=== PATIENT | male | born 1955 | race Caucasian/White ===

== ENCOUNTER 2016-09-21 20:29 | Emergency (ER) | payer OTHER ==
[~2016-09-21] VITALS: Ht 177.8 cm; Wt 100.0 kg
[~2016-09-21 20:29] MED LIST: NO HOME MEDICATIONS
[2016-09-21 20:34] VITALS: BP 202/87; PULSE 73; RESP 16; O2SAT 95
[2016-09-21 21:02] LABS: BASOPHILS % (AUTO) 0.3 % (0-3); EOSINOPHILS % (AUTO) 2.1 % (0-5); NEUTROPHILS % (AUTO) 58.3 % (40-74); Platelet Count 280 bil/L (150-400)
[2016-09-21 21:18] LABS: TROPONIN T 0.01 ug/L (0.0-0.011)
--- NOTE | 2016-09-21 21:24 | DRSVH ---
PROCEDURE: X-RAY CHEST ONE VIEW, PORTABLE ([id number]) INDICATIONS: CHEST PAIN TECHNIQUE: One view of the chest was acquired. COMPARISON: None. FINDINGS: Surgical changes and devices: None. Lungs and pleura: No pleural effusions or pneumothorax. Lungs are clear. Mediastinum: Mediastinal contours appear normal. Heart size is normal. Bones and chest wall: No suspicious bony lesions. Overlying soft tissues appear unremarkable. IMPRESSION: No acute cardiopulmonary disease process. Dictated by: Edita Chaudhari MD, PhD on 09/21/2016 at 21:22 Approved by: Edita Chaudhari MD, PhD on 09/21/2016 at 21:22
[2016-09-21 21:29] LABS: Magnesium 2.1 mg/dL (1.6-2.6)
[2016-09-22 00:03] VITALS: BP 150/67; PULSE 65; RESP 20; O2SAT 97
--- NOTE | 2016-09-22 01:23 | ED.REPORT ---
HPI-Chest Pain 40 and Over Date of Service Sep 22, 2016 ED Provider: oJrje Paris DO Extremities 1-year-old male with past medical history of bilateral ear congestion has been seen by outpatient ENT in the recent past with no diagnosis given, and Achilles tendon repair 6 months prior. Presented to the ED secondary to chest pressure 30 minutes. Patient states he had been experiencing bilateral ear congestion when he tried to clear his ear is with a Valsalva maneuver he developed a chest pressure accompanied with lightheadedness and transient diaphoresis. These symptoms resolved within 10- 15 minutes of onset. At time of interview patient asymptomatic. Nursing Notes Stated Complaint: CHEST PRESSURE/DIZZY/EAR PAIN Chief Complaint: Chest Pain-Non Cardiac Nature Nursing Notes Reviewed: Yes Allergies: Coded Allergies: Sulfa (Sulfonamide Antibiotics) (Verified Allergy, Unknown, rash, 02/07/16) Miscellaneous Medications ([No Home Medications]) General Time Seen by MD: 21:02 Chief Complaint Chest pressure Hx Obtained From: Patient Arrived By: Walk-in Sudden in Onset?: Yes Onset Occurred: Just prior to arrival Past Medical History Smoking History Never Smoker Review of Systems Constitutional: Denies: Chills, Fever Respiratory: Denies: Dyspnea on exertion, Shortness of breath, Wheezing Cardiovascular: Denies: Chest pain, Dyspnea on exertion, Edema, Palpitations GI: Denies: Abdominal pain, Bloody/tarry stool, Constipation, Diarrhea, Nausea , Vomiting Musculoskeletal: Denies: Back pain, Neck pain Neurologic: Denies: Change LOC, Confusion, Dizziness, Focal weakness, Headache , Lightheaded, Numbness, Slurred speech, Vision change Psychiatric: Denies: Change mental status, Confusion Physical Exam General: No acute distress, well-developed, well-nourished, appropriately interactive HEENT: Normocephalic, atraumatic. External ears without defect. Pupils equal, round, and reactive to light and accommodation. Anicteric sclerae, moist conjunctivae, and no lid lag. Neck: Supple with full range of motion. No jugular venous distension. No bruits. No lymphadenopathy or thyromegaly. Cardiovascular: Regular rate and rhythm with no murmurs, rubs, or gallops appreciated Pulmonary: Clear to auscultation bilaterally with no crackles, wheezes, or rhonchi. Normal respiratory effort with no use of accessory muscles. Abdomen: Bowel tones present. Soft, nontender, nondistended. No hepatosplenomegaly or masses appreciated. Extremities: No clubbing, cyanosis, edema, or lymphadenopathy appreciated. Digital scar right Achilles tendon. Right ankle slightly swollen Skin: Normal temperature, turgor, and texture; no rash, ulcers, or subcutaneous nodules appreciated. Neurological: Cranial nerves grossly intact. Normal muscle strength, tone, and bulk. Reflexes, coordination, and sensory function within normal limits. No known gait impairment. Psychiatric: Normal mood and affect. Alert and oriented to person, place, and time. Initial Vital Signs Vital Signs (First) Date Time Temp Pulse Resp B/P Pulse Ox O2 Delivery O2 Flow Rate FiO2 09/21/16 20:34 36.5 73 16 202/87 95 Room Air Initial VS: Reviewed Interpretation & Diagnostics X-RAY CHEST ONE VIEW, PORTABLE IMPRESSION: No acute cardiopulmonary disease process. Dictated by: Edita Chaudhari MD, PhD on 09/21/2016 at 21:22 Lab Results Interpretation Result Diagram: 09/21/16204409/21/162044 Test 09/21/16 20:45 09/21/16 22:06 White Blood Count 9.4th/mm3 (3.8-10.1) Red Blood Count 4.90mil/mm3 (4.40-5.80) Hemoglobin 15.2g/dL (13.8-17.2) Hematocrit 44.1% (41.0-50.0) Mean Corpuscular Volume 90.0fL (81-100) Mean Corpuscular Hemoglobin 31.0pg (27.0-35.0) Mean Corpuscular Hemoglobin Concent 34.5% (32.0-37.0) Red Cell Distribution Width 13.8% (12.3-15.4) Platelet Count 280bil/L (150-400) Neutrophils (%) (Auto) 58.3% (40-74) Lymphocytes (%) (Auto) 29.2% (14-46) Monocytes (%) (Auto) 10.0% (4-12) Eosinophils (%) (Auto) 2.1% (0-5) Basophils (%) (Auto) 0.3% (0-3) D-Dimer < 0.5mg/L (<0.50) Sodium Level 139mEq/L (134-144) Potassium Level 3.8mEq/L (3.5-5.2) Chloride Level 101mEq/L (97-108) Carbon Dioxide Level 23mmol/L (18-29) Blood Urea Nitrogen 20mg/dL (8-27) Creatinine 1.01mg/dL (0.76-1.27) Estimat Glomerular Filtration Rate 80mL/min (>59) Glucose Level 118mg/dL (60-99) Calcium Level 8.9mg/dL (8.5-10.1) Magnesium Level 2.1mg/dL (1.6-2.6) Total Bilirubin 0.3mg/dL (0.0-1.2) Aspartate Amino Transf (AST/SGOT) 29U/L (0-50) Alanine Aminotransferase (ALT/SGPT) 52U/L (0-44) Alkaline Phosphatase 82U/L (25-160) Total Protein 7.7g/dL (6.4-8.4) Albumin 4.2g/dL (3.4-5.0) Troponin T 0.010ug/L (0.0-0.011) ECG Interpretation ECG Interpretation: Sinus rhythm Interpreted by: ED physician Re-Eval/Medical Decision Med Decision/Clinical Course CBC and CMP unremarkable. Serial troponins negative. Chest x-ray and EKG both unremarkable. It is possible that the patient's presenting symptoms were due to patient attempting to clear ears with a Valsalva maneuver which triggered baroreceptors causing vasodilation with exceptionally cause dizziness. Patient counseled on this as well as other possible etiologies, most importantly no acute cardiac event was the culprit for presentation. Secondary to recent Achilles tendon surgery 6 months prior and self-reported chronic right leg swelling d-dimer ordered and result negative. Patient given 325 mg ASA discharged to home in stable condition with aggressive encouragement for him to follow-up/establish with a primary care provider for health maintenance and preventative care. Counseled Regarding: Diagnosis, Lab results, Need for follow-up, When/why to return to ED Discharge & Departure Primary Impression: Non-cardiac chest pain Disposition: Home Discharge Condition All VS Reviewed: Yes Condition: Stable Additional Instructions: Chest x-ray showed no acute cardiopulmonary disease. EKG was unremarkable. An blood work did not show any evidence of a heart attack. This is good news. Please do follow up with your primary care provider not only regarding today's emergency room visit but to establish a baseline on her health this will include lipid panel hypertension check as well as scheduling you for screening exams. Attending Statement I personally take history and performed a physical examination. Mr. Patricia has fluid behind his left ear. He performed a Valsalva and then felt dizzy. He did not suffer syncopal episode and nothing in his history physical examination was consistent with a stroke. Pulmonary live very unlikely with a normal d-dimer. He did have Achilles tendon surgery last 6 months of the sports medicine soft risk. I think that we need to go from no further regarding PE workup with a normal d-dimer. Suture troponins were normal. I suspect that he should do well with an antihistamine. [place] ruled out. Stroke highly unlikely based on history and physical. Close outpatient follow-up recommended. CASEY CHOW DO Sep 22, 2016 01:23 Jorje Paris DO Sep 22, 2016 17:51
== END 2016-09-22 00:05 | disposition home or self-care (01) ==
LOC: SED 20:29
DX: R07.89 Other chest pain (principal); Z88.2 Allergy status to sulfonamides

== ENCOUNTER 2016-12-25 22:59 | Emergency (ER) | payer OTHER ==
[~2016-12-25] VITALS: Ht 175.3 cm; Wt 109.1 kg
[2016-12-25 23:02] VITALS: BP 196/100; PULSE 82; RESP 20; O2SAT 96
[2016-12-25] MEDS ORDERED: Albuterol-Ipratropium 3 mL Inhalation Solution ONE (23:42)
[2016-12-25 23:49] VITALS: PULSE 82; RESP 18; O2SAT 96
[2016-12-26 00:25] LABS: BASOPHILS % (AUTO) 0.3 % (0-3); MONOCYTES % (AUTO) 9.4 % (4-12); Mean Corpuscular Hemoglobin 30.3 pg (27.0-35.0); Mean Corpuscular Volume 91.1 fL (81-100); Platelet Count 293 bil/L (150-400)
--- NOTE | 2016-12-26 00:47 | ED.REPORT ---
HPI-Dyspnea / Wheezing Date of Service Dec 26, 2016 ED Provider: Alexys Lucas MD Patient is a 61 year old male with a history of hypertension who presents to the ED complaining of increased sinus drainage and difficulty breathing onset 5 days ago. Tonight the patient was coughing up some of his drainage, which felt productive to him. However his coughing became persistent and he developed difficulty breathing. He felt as if his throat was going to close up on him and he became concerned. He reports a large amount of sinus drainage at his baseline and whenever he develops an upper respiratory infection this only exacerbates his symptoms. He states that nothing actually comes out of his nose and that the drainage is clear. The patient has previously undergone allergy testing, chest x-ray, barium swallow, laryngoscopy, and a CT scan of his sinuses for work-up of this problem. This work-up was last summer and was negative. He reports the sensation that there is a "pocket at the back of his throat". The patient is unable to sleep due to his symptoms, as the drainage makes it difficult for him to breath at night. He denies a fever. Patient denies smoking cigarettes or chewing tobacco. Nursing Notes Stated Complaint: TROUBLE BREATHING Chief Complaint: FLU/Cold Symptoms Nursing Notes Reviewed: Yes Allergies: Coded Allergies: Sulfa (Sulfonamide Antibiotics) (Verified Allergy, Unknown, rash, 02/07/16) Scheduled Prednisone (PredniSONE) 20 Mg Tablet 20 MG PO TID Miscellaneous Medications ([No Home Medications]) General Time Seen by MD: 00:46 Chief Complaint Shortness of breath Hx Obtained From: Patient Arrived By: Walk-in Sudden in Onset?: No Onset Occurred: 5 days ago (worse tonight) Symptom Duration: Since onset Recent Healthcare: No recent hospitalization, Recent doctor visit Similar Sx Previous: Yes Past Medical History Past Medical History chronic sinus congestion Reports: Hypertension Past Surgical History knee surgery Reports: Appendectomy, Inguinal hernia repair, Tonsillectomy Smoking History Never Smoker Social History Alcohol Use: "Social" Other Social History: Good social support, , Local resident Ambulatory Status Independent Review of Systems Constitutional: Denies: Fever Ears / Nose / Throat: Reports: Sinus problem, Throat swelling Respiratory: Reports: Prod cough, clear, Shortness of breath Complete sys rev & neg: except as marked. Physical Exam Initial Vital Signs Vital Signs (First) Date Time Temp Pulse Resp B/P Pulse Ox O2 Delivery O2 Flow Rate FiO2 12/25/16 23:02 36.3 82 20 196/100 96 Room Air Initial VS: Reviewed, Vital signs abnormal Head / Eyes: Atraumatic, Normocephalic, PERRL Extremities: Vascular intact, Neuro intact, No swelling, No tenderness Skin: Warm, Dry, No cyanosis Neurologic: Alert, Oriented, Nonfocal Psychiatric: Mood/affect normal, Behavior normal, Normal thought content General/Constitutional: Awake, Alert, No acute distress Neck: Supple, Non-tender Respiratory / Chest: Breath sounds = bilat, No respiratory distress, No rales, No rhonchi Wheezing / Retractions: Positive: Wheezing expiratory inspiratory and expiratory stridor, with a barky cough Cardiovascular: Heart rate NL, Regular rhythm, Heart sounds NL, No murmurs ENT: Airway patent, Pharynx NL, Tympanic membs NL, Nose exam NL Abdomen: Soft, Non-tender, No guarding, No rebound Skin: No rash, Warm, Dry Interpretation & Diagnostics Lab Results Interpretation Result Diagram: 12/26/16 0005 12/26/16 0005 Test 12/26/16 00:05 White Blood Count 13.0th/mm3 (3.8-10.1) Red Blood Count 4.82mil/mm3 (4.40-5.80) Hemoglobin 14.6g/dL (13.8-17.2) Hematocrit 43.9% (41.0-50.0) Mean Corpuscular Volume 91.1fL (81-100) Mean Corpuscular Hemoglobin 30.3pg (27.0-35.0) Mean Corpuscular Hemoglobin Concent 33.3% (32.0-37.0) Red Cell Distribution Width 14.2% (12.3-15.4) Platelet Count 293bil/L (150-400) Neutrophils (%) (Auto) 61.0% (40-74) Lymphocytes (%) (Auto) 27.2% (14-46) Monocytes (%) (Auto) 9.4% (4-12) Eosinophils (%) (Auto) 2.0% (0-5) Basophils (%) (Auto) 0.3% (0-3) Sodium Level 142mEq/L (134-144) Potassium Level 3.7mEq/L (3.5-5.2) Chloride Level 102mEq/L (97-108) Carbon Dioxide Level 23mmol/L (18-29) Blood Urea Nitrogen 15mg/dL (8-27) Creatinine 1.14mg/dL (0.76-1.27) Estimat Glomerular Filtration Rate 69mL/min (>59) Glucose Level 98mg/dL (60-99) Calcium Level 8.9mg/dL (8.5-10.1) Magnesium Level 2.1mg/dL (1.6-2.6) Total Bilirubin 0.3mg/dL (0.0-1.2) Aspartate Amino Transf (AST/SGOT) 30U/L (0-50) Alanine Aminotransferase (ALT/SGPT) 42U/L (0-44) Alkaline Phosphatase 69U/L (25-160) Troponin T < 0.010ug/L (0.0-0.011) Pro-B-Type Natriuretic Peptide 9.35pg/mL (0-210) Total Protein 7.5g/dL (6.4-8.4) Albumin 4.3g/dL (3.4-5.0) Hold Mckeon Top Tube Received (Received) Lab Results Interpretation: Mildly elevated white blood count X-Ray Chest Interpretation Chest Xray Interpretation: Impression: No acute cardiopulmonary process View: Portable Interpretation / Wet Read by: Wet read ED physician Re-Eval/Medical Decision Med Decision/Clinical Course Symptoms of sinusitis and postnasal drip associated with this for potential need to clear his throat and mild stridor. His symptoms cleared almost completely with a racemic epinephrine treatment. He has had a previous nasopharyngeal fiberoptic scope exam of the pharynx and larynx. No abnormality was seen. He will be discharged with a short course of steroids to follow-up with his ENT doctor for further evaluation as needed. Source of Hx: Old records Re-Evaluation/Progress : Time of Eval: 02:50 Re-Evaluation/Progress Note: Rechecked the patient, who is improved after breathing treatment. Discussed his symptoms further. He reports a 3 day hospital admission in the 4th grade for croup. He states that his symptoms are always worse between 1-2am in the morning. His symptoms are most consistent with croup. Patient understands and agrees with the plan to be discharged home. Discharge instructions and follow-up discussed. All questions were addressed. Return to the ED warnings given. Counseled Regarding: Diagnosis, Lab results, Need for follow-up, When/why to return to ED Discharge & Departure Impression: Primary Impression: Croup Disposition: Home Discharge Condition All VS Reviewed: Yes Condition: Stable Patient Instructions: Croup (ED) Additional Instructions: It sounds like you have a form of croup where the viral upper respiratory infection is causing swelling of the trachea and larynx and giving needed for symptoms. Prednisone 20 mg 3 times a day for 3 days as needed, #9 prescription written. First dose was given here in the emergency room. If her symptoms are completely resolved you do not have to finish this prescription. Antibiotics would not be helpful. Referrals: Hayden Khanna MD (PCP) Scribe Attestation Portions of this note were transcribed by Keya Hamlin. I, Dr. Lucas personally performed the history, physical exam and medical decision-making; I reviewed and confirmed the accuracy of the information in the transcribed note. Signed by: Emily Pressley, 12/26/2016 0351 copies to: Hayden Khanna MD, Alexys Shaw MD Dec 26, 2016 00:47 Keya Hamlin Dec 26, 2016 00:59
[2016-12-26 00:55] LABS: TROPONIN T < 0.010 ug/L (0.0-0.011)
[2016-12-26] MEDS ORDERED: Epinephrine Racemic 2.25% 0.5 mL Inhalation Solution NEB ONE (01:00)
[2016-12-26] MEDS ORDERED: Albuterol-Ipratropium 3 mL Inhalation Solution NEB ONE (01:00)
[2016-12-26 01:15] LABS: Magnesium 2.1 mg/dL (1.6-2.6)
[2016-12-26 01:39] VITALS: PULSE 89; RESP 18; O2SAT 97
[2016-12-26] MEDS ORDERED: PRE20 PO (02:54)
[2016-12-26] MEDS ORDERED: predniSONE 20 mg Tablet PO ONE (02:55)
[2016-12-26 03:40] VITALS: BP 142/64; PULSE 80; RESP 14; O2SAT 98
--- NOTE | 2016-12-26 08:22 | DRSVH ---
PROCEDURE: X-RAY CHEST, TWO VIEWS ([id number]) INDICATIONS: cough, SOB TECHNIQUE: 2 views of the chest were acquired. COMPARISON: [facility], CR, XR CHEST 1VW (PORTABLE), 09/21/2016, 20:43. FINDINGS: Surgical changes and devices: None. Lungs and pleura: No pleural effusions or pneumothorax. Lungs are clear. Mediastinum: Mediastinal contours are normal. Heart size is normal. Bones and chest wall: No suspicious bony abnormalities. Soft tissues appear unremarkable. IMPRESSION: No acute disease Dictated by: Sebas Aguilar M.D. on 12/26/2016 at 8:19 Approved by: Sebas Aguilar M.D. on 12/26/2016 at 8:20
== END 2016-12-26 03:16 | disposition home or self-care (01) ==
LOC: SED 22:59
DX: J05.0 Acute obstructive laryngitis [croup] (principal); I10 Essential (primary) hypertension; Z88.2 Allergy status to sulfonamides
CPT/HCPCS: 71020; 80053; 83735; 83880; 84484; 85025; 93005; 94640; 94664; 99285; J7620